=== PATIENT | male | born 2000 | race Two or more races ===

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

== ENCOUNTER 2023-03-06 22:51 | Emergency (ER) | payer MEDICAID ==
[~2023-03-06] VITALS: Ht 182.9 cm; Wt 62.5 kg
[2023-03-07 03:59] VITALS: BP 147/98
[2023-03-07] MEDS ORDERED: IBUPROFEN 800 MG TAB PO ONE (04:45)
[2023-03-07] MEDS ORDERED: IBUP800T27 PO (04:50)
== END 2023-03-08 21:00 | disposition home or self-care (01) ==
LOC: ER 22:51
DX: S09.8XXA Other specified injuries of head, initial encounter (principal); Z87.891 Personal history of nicotine dependence; V43.52XA Car driver injured in collision with other type car in traffic accident, initial encounter; Y93.89 Activity, other specified; Y92.89 Other specified places as the place of occurrence of the external cause; Y99.8 Other external cause status
CPT/HCPCS: 70450; 72125